=== PATIENT | male | born 1940 | race Hispanic/Latino ===

== ENCOUNTER → 2018-11-30 | Outpatient (CLI) | payer MEDICARE ==
[~2018-11-30] MED LIST: ASPIR 8181 MG PO; ATORVASTATIN CA20 MG PO; CLOPIDOGREL75 MG PO; HYDROCHLOROTHIA25 MG PO; IOPAMIDOL 370 MG/ML 200 ML INFUS..BTL INJ ONE; LISINOPRIL10 MG PO; LISINOPRIL2.5 MG PO; SODIUM CHLORIDE 0.9% 100 ML 100 ML ONE; TOPROL XL50 MG PO
[2018-11-30 08:14] LABS: BLOOD UREA NITROGEN 17 mg/dL (7-26); BUN/CREATININE RATIO 17 (6-25); CREATININE, SERUM 1.02 mg/dL (0.72-1.25); EST GLOMERULAR FILTRATION RATE > 60 ML/MIN (60-)
--- NOTE | 2018-11-30 09:49 | Diagnostic Imaging Report ---
CTA OF THE ABDOMEN, PELVIS AND BILATERAL LOWER EXTREMITIES WITH CONTRAST. INDICATION: Leg pain TECHNIQUE: Abdomen and pelvis were scanned utilizing a multidetector helical scanner from the lung base to the pubic symphysis after administration of IV contrast. Coronal and sagittal reformations were obtained. 3-d reconstructions were performed. Scan was performed when during arterial phase. CT angiography protocol was used. IV CONTRAST: 100 mL of Isovue-370 ORAL CONTRAST: None RADIATION DOSE: Total DLP: 655.42 mGy*cm Estimated effective dose: (DLP x 0.015 x size factor) mSv COMPLICATIONS: None Dose modulation, iterative reconstruction, and/or weight based adjustment of the mA/kV was utilized to reduce the radiation dose to as low as reasonably achievable. COMPARISON: None DISCUSSION: ABDOMEN AND PELVIS: LINES and TUBES: None. LOWER THORAX: Lung bases clear. Heart size normal. HEPATOBILIARY: There is a 2.0 cm arterially enhancing mass in the left lobe of the liver, segment 2 (series 3, image 21). No other focal hepatic lesions. No biliary ductal dilation. GALLBLADDER: No radio-opaque stones or sludge. No wall thickening. SPLEEN: No splenomegaly. PANCREAS: No focal masses or ductal dilatation. ADRENALS: No adrenal nodules KIDNEYS/URETERS: Kidneys enhance symmetrically. No hydronephrosis. Small cyst lower pole right kidney. No solid mass lesions. No stones. GI TRACT: No abnormal distention, wall thickening, or evidence of bowel obstruction. Appendix is normal. PELVIC ORGANS/BLADDER: Urinary bladder unremarkable. No abnormal mass or fluid collection in the pelvis. LYMPH NODES: No dominant lymph node mass is seen in the abdomen, retroperitoneum or pelvis. PERITONEUM / RETROPERITONEUM: No pneumoperitoneum or ascites. BONES: No acute or suspicious bony lesions. There is degenerative change in lumbar spine with L4-5 and L5-S1 disc space narrowing. There is minimal gas in the spinal canal at L5-S1 likely related to degenerated disc. Age indeterminate 40% compression of the L1 vertebral body. SOFT TISSUES: Superficial surrounding soft tissue unremarkable. There is a small left inguinal hernia containing fat. VESSELS: Abdominal aorta: The abdominal aorta is atherosclerotic with calcified and noncalcified plaque. No aneurysm or dissection. 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 SMA and renal artery origins are widely patent. The EVIN is patent. Right lower extremity: Right common and external iliac arteries are patent without high-grade stenosis. 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 Internal iliac artery is patent. Common and superficial femoral arteries are patent without stenosis. Deep femoral artery is also patent. There is approximate 50% narrowing of the popliteal artery at the level of the abductor canal. Remainder of the popliteal arteries patent without stenosis. Below the popliteal there is three-vessel runoff through the tibial and peroneal arteries to the ankle and foot. Left lower extermity: The left common and external iliac arteries are patent without high-grade stenosis. Internal iliac is also patent. The common femoral artery is widely patent. The superficial femoral artery is patent. There is approximate 50% narrowing 2 cm below the common femoral. The deep femoral artery is patent. There is approximate 50% narrowing of the popliteal artery at the abductor canal. There is approximate 50-60% narrowing of the popliteal artery just above the trifurcation. Below the popliteal there is three-vessel runoff through the tibial and peroneal arteries to the ankle and foot. IMPRESSION: 1. Abdominal aorta and major branch vessels are patent. 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 There is extensive atherosclerotic calcified and noncalcified plaque throughout the aorta with no aneurysm or dissection. 2. In the right lower extremity, iliac arteries and common femoral artery are atherosclerotic with no high-grade stenosis. 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 Superficial femoral, popliteal and tibial arteries are patent. There is approximate 50% narrowing of the right popliteal artery at the abductor canal. 3. In the left lower extremity, iliac arteries and common femoral artery are atherosclerotic with no high-grade stenosis. There are areas of approximately 50% narrowing in the proximal superficial femoral artery and in the popliteal artery at the abductor canal. There is approximately 50-60% stenosis of the distal popliteal above the trifurcation. Tibial and peroneal arteries are patent. 4. There is an arterially enhancing 2.0 cm mass in the left lobe of the liver. Evaluation on this single phase exam is not definitive but this may represent a hemangioma. It may be further characterized with CT or MRI liver mass protocol examination. 5. 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 There is age indeterminate compression of the L1 vertebral body. Signed by: Dr. Trevor Bullock M.D. on 11/30/2018 9:45 AM
== END ==
LOC: CT 07:24
PROVIDERS: ATTEND Internal Medicine Cardiovascular Disease
DX: I73.9 Peripheral vascular disease, unspecified (principal)
CPT/HCPCS: 36415; 75635; 82565; 84520; Q9967

== ENCOUNTER → 2019-09-21 | Outpatient (CLI) | payer MEDICARE ==
[~2019-09-21] MED LIST changes: -SODIUM CHLORIDE 0.9% 100 ML 100 ML ONE; +SODIUM CHLORIDE 0.9% 100 ML ONE; +SODIUM CHLORIDE 0.9% 250ML 500 ML ONE
[2019-09-21 10:51] LABS: CREATININE, SERUM 1.26 mg/dL (0.72-1.25)
--- NOTE | 2019-09-24 08:30 | Diagnostic Imaging Report ---
EXAMINATION: CT angiogram of the neck CLINICAL HISTORY: Possible right carotid artery stenoses, abnormal prior neck ultrasound, follow-up. Left carotid artery prior surgery. Diabetes. Hypertension. COMPARISON STUDIES: None TECHNIQUE: Axial images were obtained from the thoracic inlet. Coronal and sagittal images reconstructed from the axial data. For optimization of of anatomic evaluation, multi-planar reconstructions, maximum intensity projections, and advanced 3D off-line post-processing was obtained and performed on a dedicated stand-alone workstation under the direct supervision of the interpreting physician. Intravenous contrast: 100 mL of Isovue-370. Dose modulation, iterative reconstruction, and/or weight based adjustment of the mA/kV was utilized to reduce the radiation dose to as low as reasonably achievable. FINDINGS: If present, stenosis of the carotid bulbs is measured based on NASCET criteria i.e area of maximum stenosis compared to the cervical ICA distal to the bulb. Aortic arch and major vessels: Soft plaque in the proximal segment of the left subclavian artery proximal to the left vertebral artery origin results in mild narrowing. Otherwise patent. No abnormalities. Common carotid arteries: Right: Patent. No abnormalities. Left: Patent. No abnormalities. Carotid bulbs: Right: Minimal soft and calcified plaque without hemodynamically significant stenosis (less than 50%). Left :Status post endarterectomy with thickened graft versus soft plaque results in mild stenosis (less than 50%). Internal carotid arteries: Right: Patent. No abnormalities. Left: Patent. No abnormalities. Vertebral arteries: Patent. No abnormalities. IMPRESSION: 1. Status post left carotid endarterectomy with mild narrowing of the left carotid bulb (less than 50%). 2. Mild atherosclerotic changes in the right carotid bulb results in mild stenosis (less than 50%). 3. The bilateral vertebral arteries are patent. 4. 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 Signed by: Dr. Melany Sunshine M.D. on 09/24/2019 8:26 AM
== END ==
LOC: CT 09:35
PROVIDERS: ATTEND Internal Medicine Cardiovascular Disease
DX: I65.23 Occlusion and stenosis of bilateral carotid arteries (principal)
CPT/HCPCS: 36415; 70498; 82565; 84520; 96360; J7050 ×2; Q9967

== ENCOUNTER → 2022-05-12 | Outpatient (CLI) | payer MEDICARE ==
[~2022-05-12] MED LIST changes: +IOPAMIDOL 370 MG/ML 100 ML INFUS..BTL INJ ONE; -IOPAMIDOL 370 MG/ML 200 ML INFUS..BTL INJ ONE; -SODIUM CHLORIDE 0.9% 250ML 500 ML ONE
[2022-05-12 09:48] LABS: CREATININE, SERUM 1.11 mg/dL (0.72-1.25)
== END ==
LOC: CT 08:36
PROVIDERS: ATTEND Internal Medicine Cardiovascular Disease
DX: I73.9 Peripheral vascular disease, unspecified (principal)
CPT/HCPCS: 36415; 75635; 82565; 84520; J7050; Q9967

== ENCOUNTER → 2022-05-14 | Outpatient (CLI) | payer MEDICARE ==
[~2022-05-14] MED LIST changes: -SODIUM CHLORIDE 0.9% 100 ML ONE
== END ==
LOC: CT 08:37
PROVIDERS: ATTEND Internal Medicine Cardiovascular Disease
DX: I65.23 Occlusion and stenosis of bilateral carotid arteries (principal); I73.9 Peripheral vascular disease, unspecified
CPT/HCPCS: 70496; 70498; Q9967

== ENCOUNTER 2024-08-05 12:35 | Emergency (ER) | payer MEDICARE ==
[~2024-08-05] VITALS: Ht 170.2 cm; Wt 77.6 kg
[~2024-08-05 12:35] MED LIST changes: -IOPAMIDOL 370 MG/ML 100 ML INFUS..BTL INJ ONE; +PREDNISONE20 MG PO; +ULTRAM 50MG50 MG PO
[2024-08-05] MEDS ORDERED: LOSARTAN POTAS100 MG PO (14:03)
[2024-08-05] MEDS ORDERED: METFORMIN HCL1000 M1 (14:04)
[2024-08-05 15:11] VITALS: PULSE 94; RESP 18; TEMP 97.9; O2SAT 96
[2024-08-05] MEDS ORDERED: PREDNISONE20 MG PO (15:11)
[2024-08-05] MEDS ORDERED: BENZONATATE100 MG PO (15:16)
== END 2024-08-05 15:19 | disposition home or self-care (01) ==
LOC: FSED 13:05
DX: R05.9 Cough, unspecified (principal); I10 Essential (primary) hypertension; E11.9 Type 2 diabetes mellitus without complications; Z11.52 Encounter for screening for COVID-19
CPT/HCPCS: 0223U; 71046; 83518; 87400; 99283

== ENCOUNTER 2025-01-23 18:53 | Inpatient (IN) | payer MEDICARE ==
[~2025-01-23] VITALS: Ht 170.2 cm; Wt 77.1 kg
[~2025-01-23 18:53] MED LIST changes: +BENZONATATE100 MG PO; +LOSARTAN POTAS100 MG PO; +METFORMIN HCL1000 M1
[2025-01-23 19:55] VITALS: TEMP 98.3
[2025-01-23 20:29] LABS: BASOPHILS % 0.3 % (0.0-1.0); EOSINOPHILS # (AUTO) 0.1 (0.0-0.4); EOSINOPHILS % 0.6 % (0.0-6.0); HEMATOCRIT 43.7 % (38.2-49.6); HEMOGLOBIN 14.5 g/dL (14.0-18.0); LYMPHOCYTES # (AUTO) 0.9 (1.0-3.2); LYMPHOCYTES % 7.2 % (18.0-39.1); MEAN CORPUSCULAR HEMOGLOBIN 29.1 pg (28-32); MEAN CORPUSCULAR HGB CONC 33.2 g/dL (31-35); MEAN CORPUSCULAR VOLUME 87.6 fL (81-99); MONOCYTES # (AUTO) 0.7 (0.2-0.8); MONOCYTES % 5.4 % (4.4-11.3); NEUTROPHILS # (AUTO) 10.9 (2.1-6.9); NEUTROPHILS % 86.2 % (38.7-80.0); PLATELET COUNT 234 x10e3/uL (140-360); RED BLOOD COUNT 4.99 x10e6/uL (4.3-5.7); RED CELL DISTRIBUTION WIDTH 13.6 % (11.7-14.4); WHITE BLOOD COUNT 12.64 x10e3/uL (4.8-10.8)
[2025-01-23 20:55] LABS: ALBUMIN 4.1 g/dL (3.5-5.0); ALBUMIN/GLOBULIN RATIO 1.4 (0.8-2.0); ANION GAP 16.5 mmol/L (8-16); BILIRUBIN,TOTAL 1.3 mg/dL (0.2-1.2); CALCIUM 9.4 mg/dL (8.4-10.2); CREATININE, SERUM 1.42 mg/dL (0.72-1.25); POTASSIUM 4.5 mmol/L (3.5-5.1); TOTAL PROTEIN 7.1 g/dL (6.5-8.1)
[2025-01-23 21:01] LABS: TROPONIN I 0.026 ng/mL (0-0.300)
[2025-01-23] MEDS: Morphine 4mg INJECTION 4 MG/ML INJ IV STA (21:06)
[2025-01-23] MEDS: ONDANSETRON HCL INJ 2MG/ML 2ML 2 MG/ML VIAL IV STA (21:06)
[2025-01-23] MEDS: SODIUM CHLORIDE 0.9% 1000ML 1,000 ML IV STA (21:06)
[2025-01-23] MEDS ORDERED: IOPAMIDOL 370 MG/ML 100 ML INFUS..BTL INJ ONE (21:07)
[2025-01-23] MEDS ORDERED: ONDANSETRON HCL INJ 2MG/ML 2ML 2 MG/ML VIAL IV PRN (22:00)
[2025-01-23] MEDS ORDERED: Morphine 4mg INJECTION 4 MG/ML INJ IV PRN (22:00)
[2025-01-23 22:23] LABS: CLARITY,URINE SL CLOUDY (CLEAR); COLOR,URINE YELLOW (YELLOW); PH,URINE 6 (5 - 7)
[2025-01-23 22:24] LABS: BILIRUBIN,URINE NEGATIVE (NEGATIVE); GLUCOSE, URINE NEGATIVE (NEGATIVE); KETONES,URINE NEGATIVE (NEGATIVE); LEUKOCYTE ESTERASE ,URINE NEGATIVE (NEGATIVE); NITRITE,URINE NEGATIVE (NEGATIVE); PROTEIN,URINE DIPSTICK NEGATIVE (NEGATIVE); URINE UROBILINOGEN 0.2 mg/dL (0.2 - 1)
[2025-01-23 22:32] LABS: RBC,URINE 0-5 /HPF (0-5); WBC,URINE (MAN) 0-5 /HPF (0-5)
[2025-01-23 22:33] LABS: BACTERIA,URINE FEW /HPF; EPITHELIAL CELLS,URINE MODERATE /LPF
[2025-01-23 23:00] VITALS: PULSE 74; RESP 16
[2025-01-23 23:13] VITALS: BP 185/90; PULSE 80; RESP 20; TEMP 98.1; O2SAT 100
[2025-01-23 23:40] VITALS: BP 167/83; PULSE 76; RESP 18; TEMP 98.1; O2SAT 100
[2025-01-24] VITALS (7 sets, daily range): BP systolic 157–171; BP diastolic 75–85; PULSE 71–79; RESP 18–20; TEMP 98–98.9; O2SAT 99–100
[2025-01-24] MEDS ORDERED: FLOMAX0.4 MG PO (00:50)
[2025-01-24] MEDS ORDERED: METFORMIN HCL500 MG PO (00:50)
[2025-01-24 04:55] LABS: BASOPHILS % 0.4 % (0.0-1.0); EOSINOPHILS # (AUTO) 0.1 (0.0-0.4); EOSINOPHILS % 0.7 % (0.0-6.0); HEMATOCRIT 44.3 % (38.2-49.6); LYMPHOCYTES # (AUTO) 0.7 (1.0-3.2); LYMPHOCYTES % 8.5 % (18.0-39.1); MEAN CORPUSCULAR HEMOGLOBIN 29.4 pg (28-32); MEAN CORPUSCULAR HGB CONC 33.9 g/dL (31-35); MEAN CORPUSCULAR VOLUME 86.9 fL (81-99); MONOCYTES # (AUTO) 0.5 (0.2-0.8); MONOCYTES % 5.8 % (4.4-11.3); NEUTROPHILS % 84.4 % (38.7-80.0); PLATELET COUNT 193 x10e3/uL (140-360); RED CELL DISTRIBUTION WIDTH 13.6 % (11.7-14.4); WHITE BLOOD COUNT 8.31 x10e3/uL (4.8-10.8)
[2025-01-24 05:28] LABS: ALBUMIN 3.8 g/dL (3.5-5.0); ALBUMIN/GLOBULIN RATIO 1.3 (0.8-2.0); BILIRUBIN,TOTAL 0.8 mg/dL (0.2-1.2); CALCIUM 9.2 mg/dL (8.4-10.2); CREATININE, SERUM 1.18 mg/dL (0.72-1.25); TOTAL PROTEIN 6.8 g/dL (6.5-8.1)
[2025-01-24 06:03] LABS: TROPONIN I 0.057 ng/mL (0-0.300)
[2025-01-24] MEDS: SODIUM CHLORIDE 0.9% 1000ML 1,000 ML IV SCH (06:32)
[2025-01-24] MEDS: METOPROLOL SUCCINATE 50 MG TAB XL PO SCH (07:45)
[2025-01-24] MEDS ORDERED: GADOBENATE DIMEGLUMINE 1 ML IV ONE (08:32)
[2025-01-24] MEDS: TAMSULOSIN HCL 0.4 MG CAP PO SCH (08:59)
[2025-01-24] MEDS ORDERED: DEXTROSE 50% SYRINGE 50 ML IV PRN (09:45)
[2025-01-24] MEDS: FAMOTIDINE 20 MG/2 ML VIAL IV SCH (10:10)
[2025-01-24] MEDS: SODIUM CHLORIDE 0.45% 1,000 ML IV SCH (11:00)
[2025-01-24] MEDS: INSULIN REGULAR, HUMAN 100 UNIT/1 ML SQ SCH (11:30)
[2025-01-24 17:06] LABS: TROPONIN I 0.064 ng/mL (0-0.300)
[2025-01-25 03:49] VITALS: BP 160/82; PULSE 73; RESP 18; TEMP 97.8; O2SAT 100
[2025-01-25 05:04] LABS: HEMATOCRIT 42.5 % (38.2-49.6); HEMOGLOBIN 14.4 g/dL (14.0-18.0); MEAN CORPUSCULAR HEMOGLOBIN 29.4 pg (28-32); MEAN CORPUSCULAR HGB CONC 33.9 g/dL (31-35); MEAN CORPUSCULAR VOLUME 86.9 fL (81-99); PLATELET COUNT 181 x10e3/uL (140-360); RED BLOOD COUNT 4.89 x10e6/uL (4.3-5.7); RED CELL DISTRIBUTION WIDTH 13.6 % (11.7-14.4); WHITE BLOOD COUNT 8.82 x10e3/uL (4.8-10.8)
[2025-01-25 05:34] LABS: ALBUMIN 3.6 g/dL (3.5-5.0); ALBUMIN/GLOBULIN RATIO 1.2 (0.8-2.0); ANION GAP 12.9 mmol/L (8-16); BILIRUBIN,TOTAL 0.8 mg/dL (0.2-1.2); CALCIUM 9.1 mg/dL (8.4-10.2); CREATININE, SERUM 1.21 mg/dL (0.72-1.25); POTASSIUM 3.9 mmol/L (3.5-5.1); TOTAL PROTEIN 6.7 g/dL (6.5-8.1)
[2025-01-25 08:18] VITALS: BP 170/85; PULSE 76; RESP 18; TEMP 97.5; O2SAT 99
[2025-01-25 08:54] LABS: BAND NEUTROPHILS % (MANUAL) 1 %; EOSINOPHILS % (MANUAL) 6 % (0-7); LYMPHOCYTES % (MANUAL) 7 % (19-48); MONOCYTES % (MANUAL) 4 % (3.4-9.0); NEUTROPHILS % (MANUAL) 82 % (40-74); PLATELET ESTIMATE ADEQUATE; PLATELET MORPHOLOGY COMMENT NORMAL; RBC MORPHOLOGY COMMENT NORMAL
[2025-01-25 11:27] VITALS: BP 155/78; PULSE 69; RESP 18; TEMP 97.6; O2SAT 100
[2025-01-25 16:22] VITALS: BP 137/92; PULSE 74; RESP 18; TEMP 98.2; O2SAT 97
[2025-01-25 20:00] VITALS: BP 153/83; PULSE 76; RESP 18; TEMP 98.8; O2SAT 100
[2025-01-25 21:00] VITALS: BP 153/83; PULSE 76; RESP 18; TEMP 98.8; O2SAT 100
[2025-01-26] VITALS (8 sets, daily range): BP systolic 155–180; BP diastolic 70–91; PULSE 66–79; RESP 18–22; TEMP 97.6–97.9; O2SAT 99–100
[2025-01-26 04:58] LABS: BASOPHILS % 0.5 % (0.0-1.0); EOSINOPHILS # (AUTO) 0.3 (0.0-0.4); EOSINOPHILS % 4.2 % (0.0-6.0); HEMATOCRIT 41.3 % (38.2-49.6); HEMOGLOBIN 14.1 g/dL (14.0-18.0); LYMPHOCYTES # (AUTO) 1.1 (1.0-3.2); LYMPHOCYTES % 14.7 % (18.0-39.1); MEAN CORPUSCULAR HEMOGLOBIN 29.1 pg (28-32); MEAN CORPUSCULAR HGB CONC 34.1 g/dL (31-35); MEAN CORPUSCULAR VOLUME 85.3 fL (81-99); MONOCYTES # (AUTO) 0.6 (0.2-0.8); MONOCYTES % 8.2 % (4.4-11.3); NEUTROPHILS # (AUTO) 5.5 (2.1-6.9); PLATELET COUNT 183 x10e3/uL (140-360); RED BLOOD COUNT 4.84 x10e6/uL (4.3-5.7); RED CELL DISTRIBUTION WIDTH 13.3 % (11.7-14.4); WHITE BLOOD COUNT 7.69 x10e3/uL (4.8-10.8)
[2025-01-26 05:26] LABS: ALBUMIN 3.4 g/dL (3.5-5.0); ALBUMIN/GLOBULIN RATIO 1.1 (0.8-2.0); ANION GAP 15.5 mmol/L (8-16); BILIRUBIN,TOTAL 0.8 mg/dL (0.2-1.2); CALCIUM 9.2 mg/dL (8.4-10.2); CREATININE, SERUM 1.18 mg/dL (0.72-1.25); POTASSIUM 3.5 mmol/L (3.5-5.1); TOTAL PROTEIN 6.4 g/dL (6.5-8.1)
[2025-01-26 11:52] LABS: CLARITY,URINE HAZY (CLEAR); COLOR,URINE YELLOW (YELLOW); GLUCOSE, URINE NEGATIVE (NEGATIVE); LEUKOCYTE ESTERASE ,URINE NEGATIVE (NEGATIVE); NITRITE,URINE NEGATIVE (NEGATIVE); PH,URINE 6 (5 - 7); PROTEIN,URINE DIPSTICK NEGATIVE (NEGATIVE)
[2025-01-26 11:53] LABS: BACTERIA,URINE FEW /HPF; BILIRUBIN,URINE NEGATIVE (NEGATIVE); EPITHELIAL CELLS,URINE FEW /LPF; KETONES,URINE NEGATIVE (NEGATIVE); RBC,URINE 0-5 /HPF (0-5); URINE UROBILINOGEN 0.2 mg/dL (0.2 - 1); WBC,URINE (MAN) 0-5 /HPF (0-5)
[2025-01-27] VITALS (7 sets, daily range): BP systolic 150–163; BP diastolic 73–84; PULSE 64–70; RESP 12–20; TEMP 97.5–98.2; O2SAT 98–100
[2025-01-27 07:03] LABS: BASOPHILS % 0.5 % (0.0-1.0); EOSINOPHILS # (AUTO) 0.5 (0.0-0.4); EOSINOPHILS % 7.7 % (0.0-6.0); HEMATOCRIT 41.1 % (38.2-49.6); HEMOGLOBIN 13.9 g/dL (14.0-18.0); LYMPHOCYTES # (AUTO) 1.2 (1.0-3.2); LYMPHOCYTES % 19.4 % (18.0-39.1); MEAN CORPUSCULAR HEMOGLOBIN 29.1 pg (28-32); MEAN CORPUSCULAR HGB CONC 33.8 g/dL (31-35); MEAN CORPUSCULAR VOLUME 86.2 fL (81-99); MONOCYTES # (AUTO) 0.6 (0.2-0.8); MONOCYTES % 9.5 % (4.4-11.3); NEUTROPHILS # (AUTO) 3.9 (2.1-6.9); NEUTROPHILS % 62.7 % (38.7-80.0); PLATELET COUNT 190 x10e3/uL (140-360); RED BLOOD COUNT 4.77 x10e6/uL (4.3-5.7); RED CELL DISTRIBUTION WIDTH 13.2 % (11.7-14.4); WHITE BLOOD COUNT 6.13 x10e3/uL (4.8-10.8)
[2025-01-27 07:14] LABS: ANION GAP 14.8 mmol/L (8-16); CALCIUM 9.1 mg/dL (8.4-10.2); CREATININE, SERUM 1.19 mg/dL (0.72-1.25); POTASSIUM 3.8 mmol/L (3.5-5.1)
[2025-01-27] MEDS: HYDRALAZINE HCL 25 MG TAB PO SCH (09:56)
[2025-01-27] MEDS ORDERED: KETOROLAC TROMETHAMINE 30 MG/ML VIAL IV ONE (17:45)
[2025-01-27] MEDS ORDERED: HYDROCODONE/APAP 5MG-325MG TAB PO PRN (17:45)
[2025-01-28] VITALS (7 sets, daily range): BP systolic 146–184; BP diastolic 68–98; PULSE 65–92; RESP 15–18; TEMP 97–97.7; O2SAT 100
[2025-01-28] MEDS: METOPROLOL TARTRATE INJ 1 MG/ML VIAL IV PRN (08:48)
[2025-01-28] MEDS ORDERED: LIDOCAINE HCL 2% LOCAL INJ 5 ML SDV VIAL INJ ONE (11:55)
[2025-01-28] MEDS ORDERED: FENTANYL CITRATE/PF 100MCG/2 ML INJ ONE (11:55)
[2025-01-28] MEDS ORDERED: SEVOFLURANE INHAL SOLN 250 ML PEN BTL ONE (11:56)
[2025-01-28] MEDS ORDERED: ACETAMINOPHEN 1000 MG/100 ML 100 ML IV ONE (11:56)
[2025-01-28] MEDS ORDERED: PROPOFOL IV EMULSION 10 MG/ML 20 ML VIAL ONE (11:56)
[2025-01-28] MEDS ORDERED: ROCURONIUM BROMIDE 1 ML IV ONE (12:33)
[2025-01-28] MEDS ORDERED: DEXAMETHASONE SOD PHOS INJ 4 MG/ML SDV ONE (13:06)
[2025-01-28] MEDS ORDERED: ONDANSETRON HCL INJ 2MG/ML 2ML 2 MG/ML VIAL ONE (13:06)
[2025-01-28] MEDS ORDERED: EPHEDRINE SULFATE INJ 50 MG/ML VIAL ONE (13:17)
[2025-01-28] MEDS ORDERED: SUGAMMADEX SODIUM 200 MG/2 ML VIAL IV ONE (13:33)
[2025-01-28] MEDS ORDERED: HYDROCODONE/APAP 5MG-325MG TAB PO PRN (13:45)
[2025-01-28] MEDS ORDERED: ONDANSETRON HCL INJ 2MG/ML 2ML 2 MG/ML VIAL IV PRN (13:45)
[2025-01-28] MEDS: SODIUM CHLORIDE 0.9% 1000ML 1,000 ML IV SCH (15:39)
[2025-01-28] MEDS: PIPERACILLIN/TAZOBACTAM 3.375 GM VIAL ONE (19:35)
[2025-01-29] VITALS (7 sets, daily range): BP systolic 157–168; BP diastolic 76–84; PULSE 70–87; RESP 16–19; TEMP 97.4–98.5; O2SAT 99–100
[2025-01-29] MEDS ORDERED: ULTRAM 50MG50 MG PO (06:16)
[2025-01-29 07:53] LABS: BASOPHILS % 0.3 % (0.0-1.0); EOSINOPHILS % 0.1 % (0.0-6.0); HEMATOCRIT 42.2 % (38.2-49.6); HEMOGLOBIN 14.2 g/dL (14.0-18.0); LYMPHOCYTES # (AUTO) 0.8 (1.0-3.2); LYMPHOCYTES % 9.3 % (18.0-39.1); MEAN CORPUSCULAR HEMOGLOBIN 28.8 pg (28-32); MEAN CORPUSCULAR HGB CONC 33.6 g/dL (31-35); MEAN CORPUSCULAR VOLUME 85.6 fL (81-99); MONOCYTES # (AUTO) 0.6 (0.2-0.8); MONOCYTES % 6.4 % (4.4-11.3); NEUTROPHILS # (AUTO) 7.5 (2.1-6.9); NEUTROPHILS % 83.7 % (38.7-80.0); PLATELET COUNT 220 x10e3/uL (140-360); RED BLOOD COUNT 4.93 x10e6/uL (4.3-5.7); RED CELL DISTRIBUTION WIDTH 12.9 % (11.7-14.4); WHITE BLOOD COUNT 8.95 x10e3/uL (4.8-10.8)
[2025-01-29 08:15] LABS: ANION GAP 14.4 mmol/L (8-16); CALCIUM 9.3 mg/dL (8.4-10.2); CREATININE, SERUM 1.15 mg/dL (0.72-1.25)
[2025-01-29 08:17] LABS: POTASSIUM 3.4 mmol/L (3.5-5.1)
[2025-01-29] MEDS: NIFEDIPINE CR 30 MG TAB PO SCH (15:45)
[2025-01-29] MEDS ORDERED: AMLODIPINE BESYL5 MG PO (16:13)
[2025-01-29] MEDS ORDERED: TYLENOL325 MG PO (16:13)
[2025-01-29] MEDS ORDERED: ONDANSETRON ODT4 MG PO (16:13)
[2025-01-29] MEDS ORDERED: SENOKOT8.6 MG PO (16:13)
[2025-01-29] MEDS ORDERED: HYDRALAZINE HCL25 MG PO (16:13)
[2025-01-29] MEDS ORDERED: CEPHALEXIN500 MG PO (16:13)
[2025-01-29] MEDS ORDERED: METRONIDAZOLE500 MG PO (16:13)
== END 2025-01-29 17:51 | disposition home or self-care (01) | DRG 418 ==
LOC: ER 19:12 → ERHOLD 21:58 → MED/SURG 23:23
PROVIDERS: ADMIT Internal Medicine; ATTEND Internal Medicine
PROC: 0FT44ZZ Resection of Gallbladder, Percutaneous Endoscopic Approach (ICD-10-PCS; principal; 2025-01-28 12:55)
DX: K85.10 Biliary acute pancreatitis without necrosis or infection (principal); N17.9 Acute kidney failure, unspecified; E86.0 Dehydration; E11.9 Type 2 diabetes mellitus without complications; I25.10 Atherosclerotic heart disease of native coronary artery without angina pectoris; E78.5 Hyperlipidemia, unspecified; I48.0 Paroxysmal atrial fibrillation; R74.01 Elevation of levels of liver transaminase levels; I10 Essential (primary) hypertension; Z95.5 Presence of coronary angioplasty implant and graft; Z79.52 Long term (current) use of systemic steroids; Z79.84 Long term (current) use of oral hypoglycemic drugs; Z79.82 Long term (current) use of aspirin; Z79.02 Long term (current) use of antithrombotics/antiplatelets; F17.210 Nicotine dependence, cigarettes, uncomplicated
CPT/HCPCS: 36415; 74177; 74183; 76705; 80048; 80053; 80061; 81001; 82550; 82948; 83036; 83690; 84484; 85007; 85025; 85027; 88304; 93005; 93306; 99252; 99284; J1100; J1308; J2003; J2270; J2405; J2543; J7030; Q9967